=== PATIENT | male | born 1940 | race Hispanic/Latino ===

== ENCOUNTER → 2019-11-16 | Day surgery (SDC) | payer OTHER ==
[2019-11-12 10:58] LABS: BASOPHILS % 0.5 % (0.0-1.0); EOSINOPHILS # (AUTO) 0.2 (0.0-0.4); HEMATOCRIT 38.6 % (38.2-49.6); HEMOGLOBIN 12.5 g/dL (14.0-18.0); LYMPHOCYTES # (AUTO) 1.6 (1.0-3.2); LYMPHOCYTES % 28.1 % (18.0-39.1); MEAN CORPUSCULAR HEMOGLOBIN 29.1 pg (28-32); MEAN CORPUSCULAR HGB CONC 32.4 g/dL (31-35); MONOCYTES # (AUTO) 0.5 (0.2-0.8); MONOCYTES % 9.2 % (4.4-11.3); NEUTROPHILS # (AUTO) 3.3 (2.1-6.9); PLATELET COUNT 101 x10e3/uL (140-360); RED BLOOD COUNT 4.29 x10e6/uL (4.3-5.7); RED CELL DISTRIBUTION WIDTH 12.9 % (11.7-14.4)
[~2019-11-16] MED LIST: AMLODIPINE BESYL5 MG PO; FINASTERIDE5 MG PO; FLOMAX0.4 MG PO; LIDOCAINE HCL 2% LOCAL INJ 5 ML SDV VIAL INJ ONE; LISINOPRIL10 MG PO; OMEPRAZOLE40 MG PO; PRAVACHOL20 MG PO; PROPOFOL IV EMULSION 10 MG/ML 20 ML VIAL ONE
[2019-11-16 14:25] VITALS: BP 157/83
--- NOTE | 2019-11-16 16:45 | Operative Report ---
DATE OF PROCEDURE: 11/16/2019 SURGEON: Mitchell German MD PROCEDURES: EGD with biopsies. INDICATIONS FOR EGD: Upper abdominal pain, acid reflux. MEDICATIONS: The patient was done under MAC, please see anesthesiologist's note. PROCEDURE IN DETAIL: With the patient in left lateral decubitus position, a flexible fiberoptic Olympus gastroscope was introduced into the esophagus under direct visualization without any difficulty. There was some patchy erythema noted in distal esophagus. The scope was then advanced with ease into the stomach, traversing a small sliding hiatal hernia. Mucosa overlying the antrum and the body revealed some patchy erythema and [id number] edema, and biopsies were obtained, sent to stain for H. pylori. Pylorus was of normal contour and shape, it was intubated with ease and the scope was advanced all the way to the second portion of the duodenum. The scope was then withdrawn slowly, mucosa overlying the proximal second portion and the duodenal bulb appeared to be within normal limits. Biopsies were obtained to rule out sprue. There was a large diverticulum in the proximal second portion. The scope was then withdrawn back into the stomach and retroflexed, mucosa overlying the fundus and cardia appeared to be within normal limits. The scope was then straightened out, it was subsequently withdrawn. The patient tolerated the procedure well. IMPRESSION: 1. Distal esophagitis, mild. 2. Small sliding hiatal hernia. 3. Gastritis, biopsied, biopsies sent to stain for H. pylori. 4. Rule out sprue. 5. Duodenal diverticulum. PLAN: 1. Follow up histology. 2. Initiate Protonix 40 mg one p.o. q.a.m. a.c. Mitchell German MD [facility] [place]/MODL /[id number] cc: Haydee Clemons MD
== END | disposition home or self-care (01) ==
LOC: OR 08:51
PROVIDERS: ATTEND Internal Medicine Gastroenterology
DX: K29.70 Gastritis, unspecified, without bleeding (principal); K57.10 Diverticulosis of small intestine without perforation or abscess without bleeding; K21.9 Gastro-esophageal reflux disease without esophagitis; K20.9 Esophagitis, unspecified; K44.9 Diaphragmatic hernia without obstruction or gangrene; Z86.010 Personal history of colon polyps; K76.0 Fatty (change of) liver, not elsewhere classified; N40.0 Benign prostatic hyperplasia without lower urinary tract symptoms; I25.10 Atherosclerotic heart disease of native coronary artery without angina pectoris; I25.2 Old myocardial infarction; R00.1 Bradycardia, unspecified; E78.00 Pure hypercholesterolemia, unspecified; I10 Essential (primary) hypertension; Z88.6 Allergy status to analgesic agent; Z11.59 Encounter for screening for other viral diseases; Z01.810 Encounter for preprocedural cardiovascular examination; Z01.812 Encounter for preprocedural laboratory examination; Z95.5 Presence of coronary angioplasty implant and graft
CPT/HCPCS: 36415; 43239; 85025; 87635; 93005; J2001; J2704